=== PATIENT | female | born 1985 | race Caucasian/White ===

== ENCOUNTER 2018-12-02 11:23 | Emergency (ER) | payer SELFPAY ==
[2018-12-02 11:24] VITALS: BP 135/89; PULSE 106; RESP 18; TEMP 36.7; O2SAT 96; BMI 36.8
--- NOTE | 2018-12-02 11:52 | RAD_ITS ---
STUDY: X-RAY CHEST REASON FOR EXAM: Female, 33 years old. Flulike symptoms. TECHNIQUE: PA and lateral views of the chest. COMPARISON: None. FINDINGS: The lungs are clear and expanded. There is no demonstrated pleural abnormality. Normal size heart. Normal mediastinum and alexis. Normal visualized pulmonary arteries. Normal visualized aortic arch and descending thoracic aorta. Normal visualized thoracic spine. Normal visualized ribs, clavicles, and shoulders. There is no demonstrated abnormality of the visualized soft tissue structures of the upper abdomen. RAD/Chest PA and Lateral IMPRESSION: Normal x-ray examination of the chest. Electronically Signed: Martinez Jimenez, at 12:49 EST , Service support ,
--- NOTE | 2018-12-02 12:49 | ED.DCSUM_ITS ---
- ER Visit Summary Date of Service: 12/02/18 Chief Complaint: Cough and body aches History of Present Illness: The patient is a 33 F who states that on Saturday she began to have a cough. Things got worse yesterday when she developed right ear pain chills and sweats and production generalized myalgias. She denies a headache or significant rhinorrhea. She notes that she feels more congested when she blows her nose some green discharge comes up. No history of asthma or chronic medical problems. She is a smoker. Physical Examination: Afebrile vital signs are stable Gen: Well-nourished well-developed Head: Normocephalic atraumatic Eyes: Perrl EOMI ENT: TMs clear no rhinorrhea moist mucous membranes Neck: Supple no lymphadenopathy no JVD nontender CVS: Regular rate rhythm no murmurs normal S1-S2 Respiratory: No distress clear to auscultation bilaterally chest nontender Abdomen: Soft nontender nondistended normal bowel sounds no masses Back: Nontender Extremity: Nontender no edema Skin: Normal color no rash Neuro: alert orientated ?3 CN II-XII intact normal strength sensation reflexes gait cerebellar Psych: Normal affect normal mood Test Results: Chest x-ray is negative. Influenza is positive for influenza B. Emergency Department Course and Treatment: Patient will be discharged home with supportive care. She will be written off work for couple days. Impression: 1. Influenza B This note was generated with [employer] dictation software. It may contain incorrect words, spelling, and punctuation that were not noted in review of the chart prior to signing ED Disposition - Plan for ED Patient: Disposition: Home or Assisted Living Instructions: ED Flu Referrals: Lakesha Cazares MD [STAFF PHYSICIAN] - As Needed
== END 2018-12-02 13:00 | disposition home or self-care (01) ==
PROVIDERS: Emergency Provider Emergency Medicine
DX: J11.1 Influenza due to unidentified influenza virus with other respiratory manifestations (principal); Z72.0 Tobacco use
CPT/HCPCS: 71046; 87804; 99282